=== PATIENT | female | born 1975 | race Caucasian/White ===

== ENCOUNTER 2017-06-23 14:04 | Emergency (ER) | payer SELFPAY ==
[~2017-06-23] VITALS: Ht 162.6 cm; Wt 136.1 kg
[~2017-06-23 14:04] MED LIST: ALBU0.0939; [UNRECOGNIZED DRUG - CODE] PO
[2017-06-23 14:09] VITALS: BP 147/92
--- NOTE | 2017-06-23 14:20 | NUR ---
PT. CAME IN W/ C/O HURD FOR 1 WEEK THAT HAS GOTTEN WORSE THE LAST 2 DAYS. PT. STATES IT IS 10/10 PAIN FROM R FRONT SIDE OF HEAD THAT RADIATES TO THE BACK OF HEAD AND DESCRIBES IT THROBBING AND SHARP PAIN. AAOX4. RR EVENA DN UNLABORED. PT. PERRLA 3MM. N/V FOR 2 DAYS AND DENIES ANY DIAHRRHEA. ER. . NOTIFIED. WILL CONTINUE TO MONITOR.
[2017-06-23] MEDS ORDERED: ONDANSETRON 4 MG ODT PO ONE (14:30)
[2017-06-23] MEDS ORDERED: diphenhydrAMINE 50 MG/ML VIAL IM ONE (14:30)
[2017-06-23] MEDS ORDERED: MORPHINE SULFATE 2 MG/ML SYR IM ONE ×2 (14:30→15:25)
[2017-06-23] MEDS ORDERED: MORPHINE SULFATE 4 MG/ML SYR ONE ×2 (14:41→15:21)
--- NOTE | 2017-06-23 14:44 | NUR ---
gave benadryl 25mg im.
[2017-06-23 15:49] VITALS: BP 157/85
--- NOTE | 2017-06-23 15:49 | NUR ---
Patient discharged with b/p : 154/85, pt. denied dizziness at this time, md aware,. Written and verbal after care instructions given and explained. Patient alert, oriented and verbalized understanding of instructions. Ambulatory with to car. All questions addressed prior to discharge. ID band removed. Patient advised to follow up with PMD. Rx of NORCO 5/325 AND ZOFRAN given. Patient educated on indication of medication including possible reaction and side effects. Opportunity to ask questions provided and answered.
== END 2017-06-23 15:49 | disposition home or self-care (01) ==
LOC: MED 14:04
DX: G43.909 Migraine, unspecified, not intractable, without status migrainosus (principal); J45.909 Unspecified asthma, uncomplicated; Z88.6 Allergy status to analgesic agent; Z88.8 Allergy status to other drugs, medicaments and biological substances
CPT/HCPCS: 96372; 99284; J1200; J2270; S0119